=== PATIENT | male | born 1970 | race American Indian/Alaskan Native ===

== ENCOUNTER 2017-03-16 11:27 | Emergency (ER) | payer BC ==
[2017-03-16] MEDS ORDERED: Naproxen 550 mg Tab PO STA (11:52)
[2017-03-16] MEDS ORDERED: Naproxen 550 mg Tab PO ONE (12:04)
--- NOTE | 2017-03-16 12:17 | C.PDOC ---
History Of Present Illness 46 yr old male presents to the ER with complaints of right lateral neck pain, radiating to the right shoulder and down the right arm intermittently for the past 2 weeks. Patient describes the pain as a shooting pain. Denies injury, trauma, fever, chest pain, SOB, nausea, vomiting, headache, weakness or numbness. Time Seen by Provider: 03/16/17 11:42 Chief Complaint (Nursing): Back Pain History Per: Patient History/Exam Limitations: no limitations Onset/Duration Of Symptoms: Intermittent Episodes (2 weeks) Past Medical History Reviewed: Historical Data, Nursing Documentation, Vital Signs Vital Signs: Last Vital Signs Temp 98.4 F 03/16/17 11:36 Pulse 91 H 03/16/17 11:36 Resp 20 03/16/17 11:36 BP 156/88 H 03/16/17 11:36 Pulse Ox 98 03/16/17 12:19 - Medical History PMH: Asthma Family History: States: No Known Family Hx - Social History Hx Alcohol Use: No Hx Substance Use: No Review Of Systems Except As Marked, All Systems Reviewed And Found Negative. Constitutional: Negative for: Fever Cardiovascular: Negative for: Chest Pain Respiratory: Negative for: Shortness of Breath Gastrointestinal: Negative for: Nausea, Vomiting Musculoskeletal: Positive for: Neck Pain (Right lateral neck pain ), Shoulder Pain (Right shoulder ), Arm Pain (Right arm. ) Neurological: Negative for: Weakness, Numbness, Headache Physical Exam - Physical Exam Appears: Well, Non-toxic, No Acute Distress Skin: Warm, Dry, No Rash Head: Atraumatic, Normacephalic Neck: Normal ROM, No Midline Cervical Tenderness, Supple, Other ((+) Right paraspinal tenderness. ) Chest: Symmetrical, No Deformity, No Tenderness Cardiovascular: Rhythm Regular, No Murmur Respiratory: Normal Breath Sounds, No Rales, No Rhonchi, No Stridor, No Wheezing Extremity: Normal ROM, Capillary Refill (<2), Other (Right Shoulder - No deformity. No tenderness. Right Arm - No tenderness to the elbow or wrist. ) Pulses: Left Radial: Normal, Right Radial: Normal Neurological/Psych: Oriented x3, Normal Speech, Normal Motor, Normal Sensation ED Course And Treatment O2 Sat by Pulse Oximetry: 98 Medical Decision Making Medical Decision Making: PLAN: * Naproxen PO * Flexeril PO Disposition Counseled Patient/Family Regarding: Diagnosis, Need For Followup, Rx Given - Disposition Referrals: Jaciel Tenorio DO [[facility]] - Disposition: HOME/ ROUTINE Disposition Time: 13:00 Condition: STABLE Additional Instructions: FOLLOW UP WITH YOUR DOCTOR IN 1-2 DAYS USE MEDICATIONS NEEDED RETURN TO ER IF SYMPTOMS WORSEN Prescriptions: Cyclobenzaprine [Cyclobenzaprine HCl] 10 mg PO BID PRN #12 tab PRN Reason: pain/muscle Naproxen [Naprosyn Tab] 375 mg PO BID PRN #20 tab PRN Reason: pain predniSONE [predniSONE Tab] 20 mg PO DAILY #6 tab Instructions: Cervical Radiculopathy (ED) Print Language: DOMINICAN - POA Present On Arrival: None - Clinical Impression Clinical Impression: Cervical radiculopathy - Scribe Statement The provider has reviewed the documentation as recorded by the Coy Drake Provider Attestation: All medical record entries made by the Coy were at my direction and personally dictated by me. I have reviewed the chart and agree that the record accurately reflects my personal performance of the history, physical exam, medical decision making, and the department course for this patient. I have also personally directed, reviewed, and agree with the discharge instructions and disposition.
[2017-03-16 12:59] VITALS: BP 160/95; PULSE 78; RESP 18; TEMP 97.5; O2SAT 97
== END 2017-03-16 13:04 | disposition home or self-care (01) ==
LOC: C.ER 11:27
DX: M54.12 Radiculopathy, cervical region (principal)